=== PATIENT | male | born 1945 | race Caucasian/White ===

== ENCOUNTER 2021-08-28 14:18 | Emergency (ER) | payer MEDICARE ==
[~2021-08-28] VITALS: Ht 180.3 cm; Wt 100.8 kg
[2021-08-28 14:27] VITALS: BP 163/101
[2021-08-28] MEDS ORDERED: LIDOCAINE 1%/EPI 1:100,000 20 ML VIAL. ONE (14:31)
--- NOTE | 2021-08-28 14:32 | PHYS DOC ---
Past History Past Surgical History: No Surgical History Adult General Chief Complaint Chief Complaint: LACERATION/AVULSION [facility] HPI Patient is a 76-year-old male presenting for laceration. Onset was just prior to arrival. Patient was operating a chainsaw when he accidentally cut to foreign tree limbs and suffered a small laceration to his distal left anterior thigh. Patient applied immediate pressure and presented to our ER. He has no obvious symptoms on arrival. He still has full motor or sensory neuro function of left lower extremity. He is not on any blood thinners. He is up-to-date on his tetanus shot Review of Systems Review of Systems Fourteen body systems of review of systems have been reviewed. See HPI for pertinent positives and negative responses, other boyer all other systems are negative, non-pertinent or non-contributory Allergies Allergies Allergies Coded Allergies Type Severity Reaction Last Updated Verified No Known Drug Allergies 08/28/21 No Physical Exam Physical Exam Constitutional: Well developed, well nourished, no acute distress, non-toxic appearance. HENT: Normocephalic, atraumatic, bilateral external ears normal, oropharynx moist, no oral exudates, nose normal. Eyes: PERRLA, EOMI, conjunctiva normal, no discharge. Neck: Normal range of motion, no tenderness, supple, no stridor. Cardiovascular: Heart rate regular, sinus rhythm, no murmurs rubs or gallops Lungs & Thorax: Bilateral breath sounds clear to auscultation Abdomen: Bowel sounds normal, soft, no tenderness, no masses, no pulsatile masses. Nonsurgical abdomen, no peritoneal signs Skin: Warm, dry, no erythema, no rash. Back: No tenderness, no CVA tenderness. Extremities: No tenderness, no cyanosis, no clubbing, ROM intact, no edema. Neurologic: Alert and oriented X 3, grossly normal motor & sensory function, no focal deficits noted. Psychologic: Affect normal, judgement normal, mood normal. Current Patient Data Vital Signs Vital Signs Date Time Temp Pulse Resp B/P (MAP) Pulse Ox O2 Delivery O2 Flow Rate FiO2 08/28/21 14:27 98.4 117 26 163/101 (121) 93 Vital Signs Date Time Temp Pulse Resp B/P (MAP) Pulse Ox O2 Delivery O2 Flow Rate FiO2 08/28/21 14:27 98.4 117 26 163/101 (121) 93 EKG EKG [] Radiology/Procedures Radiology/Procedures [] Heart Score C/O Chest Pain: No Risk Factors: Risk Factors: DM, Current or recent (<one month) smoker, HTN, HLP, family history of CAD, obesity. Risk Scores: Risk Factors: DM, Current or recent (<one month) smoker, HTN, HLP, family history of CAD, obesity. Course & Med Decision Making Course & Med Decision Making ABCs unremarkable HPI and physical exam nonconcerning for any emergent or surgical issues Patient has simple uncomplicated laceration of left anterior thigh that was sutured with a total of x4 simple interrupted nonabsorbable sutures Tdap up-to-date. No indication for antibiotics. Wound care instructions and close outpatient follow-up for suture removal in upcoming 7 to 10 days advised Syd Disclaimer Syd Disclaimer This electronic medical record was generated, in whole or in part, using a voice recognition dictation system. Laceration Repair Lac Repair Laceration #1: 3.5 centimeter linear wound. A time out was undertaken to determine that this was the correct patient and the correct procedure for this patient. The patients laceration was prepped and cleansed in the usual fashion. A total of 4 cc 1% lidocaine with epinephrine administered for anesthesia It was then copiously irrigated with normal saline with high pressure and high volume. The wound was explored in a clear and bloodless field to the base of the wound. There was no evidence of underlying fracture or foreign body. X4 4.0 Prolene sutures were placed in a simple interrupted fashion to close the wound. Excellent care was taken to achieve maximal cosmesis. The patient tolerated this procedure well there were no observed nor reported complications. Departure Departure: Impression: Primary Impression: Laceration of thigh, left Disposition: 01 HOME / SELF CARE / HOMELESS Condition: STABLE Referrals: NON,STAFF (PCP) Patient Instructions: Laceration Care, Adult Additional Instructions: You were seen for a laceration. Keep the area clean and dry. You should return to the ED or your PCP office to get your sutures removed in 7-10 days. You had a total of x4 simple interrupted sutures placed. Return to the ED immediately if you develop any signs of infection like increased pain, redness, fever, or purulent (pus) drainage. Do not take baths, submerge the wound, or use a hot tub until your stitches are removed and the wound is healed. QAMAR PALACIOS DO Aug 28, 2021 14:32
== END 2021-08-28 15:00 | disposition home or self-care (01) ==
LOC: ER 14:18
DX: S71.112A Laceration without foreign body, left thigh, initial encounter (principal); W29.3XXA Contact with powered garden and outdoor hand tools and machinery, initial encounter; Y93.89 Activity, other specified; Y92.89 Other specified places as the place of occurrence of the external cause; Y99.8 Other external cause status
CPT/HCPCS: 12002; 99282

== ENCOUNTER 2021-09-09 12:43 | Emergency (ER) | payer MEDICARE ==
[~2021-09-09] VITALS: Ht 180.3 cm; Wt 100.8 kg
[2021-09-09 12:50] VITALS: BP 169/88
[2021-09-09] MEDS ORDERED: DOXYCYCLINE HYCLATE 100 MG TABLET PO ONE (13:30)
[2021-09-09] MEDS ORDERED: DOXY100C3 PO (13:32)
--- NOTE | 2021-09-09 13:33 | PHYS DOC ---
Past History Past Surgical History: No Surgical History Alcohol Use: None Adult General Chief Complaint Chief Complaint: SUTURE/STAPLE REMOVAL [facility] Patient is a 76-year-old male presenting for left anterior thigh suture removal. Sutures were placed 1 week prior, a total of x4 in nature. Patient reports times 1 suture is well-appearing but the remaining seem embedded under an overlying scab. He has been applying triple antibiotic ointment daily. He is concerned as there is some mild pus and surrounding erythema Review of Systems Review of Systems Fourteen body systems of review of systems have been reviewed. See HPI for pertinent positives and negative responses, other boyer all other systems are negative, non-pertinent or non-contributory Allergies Allergies Allergies Coded Allergies Type Severity Reaction Last Updated Verified No Known Drug Allergies 08/28/21 No Physical Exam Physical Exam Constitutional: Well developed, well nourished, no acute distress, non-toxic appearance. HENT: Normocephalic, atraumatic, bilateral external ears normal, oropharynx moist, no oral exudates, nose normal. Eyes: PERRLA, EOMI, conjunctiva normal, no discharge. Neck: Normal range of motion, no tenderness, supple, no stridor. Cardiovascular: Heart rate regular per monitor Lungs & Thorax: No respiratory distress or accessory muscle use, bilateral chest rise Abdomen: Abdomen soft, non-tender, bowel sounds present in all quadrants, no guarding or rebound, nonacute abdomen. Skin: Warm, dry, 3 cm horizontal laceration superior to left anterior kneecap with x1 simple interrupted suture present with remaining times 3 sutures buried underneath scab and nonpresent. There is slight induration and erythema without any streaking, crepitus or palpable or expressible exudate Back: No tenderness, no CVA tenderness. Extremities: No tenderness, no cyanosis, no clubbing, ROM intact, no edema. Neurologic: Alert and oriented X 3, grossly normal motor & sensory function, no focal deficits noted. Psychologic: Affect normal, judgement normal, mood normal. Current Patient Data Vital Signs Vital Signs Date Time Temp Pulse Resp B/P (MAP) Pulse Ox O2 Delivery O2 Flow Rate FiO2 09/09/21 12:50 98.4 90 18 169/88 (115) 95 EKG EKG [] Radiology/Procedures Radiology/Procedures [] Heart Score C/O Chest Pain: No Risk Factors: Risk Factors: DM, Current or recent (<one month) smoker, HTN, HLP, family history of CAD, obesity. Risk Scores: Risk Factors: DM, Current or recent (<one month) smoker, HTN, HLP, family history of CAD, obesity. Course & Med Decision Making Course & Med Decision Making ABCs unremarkable HPI and physical exam nonconcerning for any emergent or surgical issues Patient had times 1 suture removed, remaining times 3 sutures appear retained and deep to overlying scab that is formed. There is also concern about surrounding erythema and induration, I question etiology being reported multi daily use of triple antibiotic ointment versus developing cellulitis Joint decision made to administer lidocaine with epinephrine at site, scab was removed and remaining times 3 sutures were extracted Joint decision also made to start p.o. antibiotic therapy, patient reported taking doxycycline in the past which I feel is a reasonable choice given its MRSA coverage. Dose was started while in ER Continued wound care instructions advised with avoidance of triple antibiotic cream stressed. Close outpatient follow-up to continue to monitor wound healing recommended. Strict return precautions discussed with good understanding by patient, all questions and concerns addressed prior to ER departure Dragon Disclaimer Dragon Disclaimer This electronic medical record was generated, in whole or in part, using a voice recognition dictation system. Laceration Repair Lac Repair Indication: X3 retained sutures Procedure: The patient was placed in the appropriate position and anesthesia around the left anterior laceration was administered, a total of 2.5 cc 1% lidocaine with epinephrine. The area was then cleansed and irrigated extensively with normal saline solution. Scab was debrided and x3 simple interrupted sutures that were nonabsorbable were cut and removed. Area was then cleansed extensively with normal saline solution. Wound was left open to heal by secondary intention. Total repaired wound length: 3 cm. The patient tolerated the procedure well without any reported nor observed complications. Departure Departure: Impression: Primary Impression: Visit for suture removal Additional Impressions: Retained suture Cellulitis Disposition: HOME / SELF CARE / HOMELESS Condition: STABLE Referrals: NON,STAFF (PCP) Additional Instructions: You were seen for suture removal. 3 out of your 4 sutures were retained requiring extraction. There was concern about early development of a superficial skin infection called cellulitis but this could be due to excessive triple antibiotic use. Regardless, joint decision was made to start antibiotic therapy using doxycycline. Please take this antibiotic as scheduled to completion well. You should nehal the area of redness when you get home. If your redness spreads past the marked area at 24 hours you should have it evaluated again. You do not have an abscess right now but you could develop one. If so you will need to have it. You should return to the ED immediately if you develop worsening pain, fever, swelling, redness, drainage, any sign of abscess, or any other new or concerning symptoms. Scripts Doxycycline Hyclate (DOXYCYCLINE HYCLATE) 100 Mg Capsule 1 CAP PO BID for CELLULITIS, #13 CAP Prov: QAMAR PALACIOS DO 09/09/21 Problem Qualifiers QAMAR PALACIOS DO Sep 09, 2021 13:33
[2021-09-09] MEDS ORDERED: MUPIROCIN 2% TOPICAL OINTMENT 22GM TUBE. TP ONE (13:45)
== END 2021-09-09 13:45 | disposition home or self-care (01) ==
LOC: ER 12:43
DX: L03.116 Cellulitis of left lower limb (principal); Z48.02 Encounter for removal of sutures
CPT/HCPCS: 99283-25

== ENCOUNTER → 2021-11-30 | Outpatient (CLI) | payer MEDICARE ==
[~2021-11-30] MED LIST: DOXY100C3 PO
--- NOTE | 2021-11-30 10:38 | RAD ---
EXAM: Renal artery Doppler sonogram. HISTORY: Resistant hypertension. TECHNIQUE: Naik scale and color Doppler sonographic imaging of the kidneys and renal arteries with sp ectral analysis was performed. COMPARISON: None. FINDINGS: The kidneys are normal in size. There is left renal cortical lobulation, likely development al or due to scarring. There is no suspicious renal lesion or hydronephrosis. There are normal bilate ral renal artery peak systolic velocities and renal artery to aorta velocity ratios. The inferior marcia a cava and renal veins are patent. The bladder is not assessed. IMPRESSION: 1. No Doppler evidence of hemodynamically significant stenosis involving the renal arteries. 2. No suspicious renal lesion. Electronically signed by: Hannah Aaron MD (11/30/2021 10:36 AM) [id number]
--- NOTE | 2021-12-01 10:46 | CARD ---
MR#: [id number] Date of Study: 11/30/2021 Ordering Physician: STEPHANIE SUAREZ, Referring Physician: STEPHANIE SUAREZ, Tech: Radha Juarez, [facility] APPROVED REPORT EXAM: Two-dimensional and M-mode echocardiogram with Doppler and color Doppler. Other Information Quality : FairHR: 68bpm INDICATION Hypertension/HCVD RISK FACTORS Hyperlipidemia 2D DIMENSIONS Left Atrium(2D)4.5 (1.6-4.0cm)IVSd1.2 (0.7-1.1cm) Aortic Root(2D)3.4 (2.0-3.7cm)LVDd5.8 (3.9-5.9cm) LVOT Diameter2.0 (1.8-2.4cm)PWd1.2 (0.7-1.1cm) LVDs3.4 (2.5-4.0cm)FS (%) 41.4 % SV118.4 ml Aortic Valve AoV Peak Chriss.133.3cm/sAoV VTI28.2cm AO Peak GR.7.1mmHgLVOT Peak Chriss.98.3cm/s LVOT VTI 21.32cmAO Mean GR.3mmHg VALERIANO (VMAX)2.40xk7MKP (VTI)2.39cm2 Mitral Valve MV E Julgjwjb89.5cm/sMV E Peak Gr.2mmHg MV DECEL [id number] A Moxjawwi19.2cm/s MV E Mean Gr.1mmHgE/A Ratio0.7 Pulmonary Valve PV Peak Pilffgvr81.8cm/sPV Peak Grad.4mmHg Tricuspid Valve TR P. Cjfsjflt745bt/sRAP [id number] TR Peak Gr.33moCqJIES81iyLc LEFT VENTRICLE The left ventricle is normal size. There is mild concentric left ventricular hypertrophy. The left ve ntricular systolic function is normal and the ejection fraction is within normal range. LV ejection f raction is 55 to 60%. There is normal LV segmental wall motion. Transmitral Doppler flow pattern is G rade I-abnormal relaxation pattern. RIGHT VENTRICLE The right ventricle is mildly dilated. There is normal right ventricular wall thickness. The right ve ntricular systolic function is normal. ATRIA The left atrium size is normal. The right atrium size is normal. The interatrial septum is intact wit h no evidence for an atrial septal defect or patent foramen ovale as noted on 2-D or Doppler imaging. AORTIC VALVE The aortic valve is thickened but opens well. Doppler and Color Flow revealed no significant aortic r egurgitation. There is no significant aortic valvular stenosis. Calculated aortic valve area is 2.4 c m2 with maximum pressure gradient of 7 mmHg and mean pressure gradient of 4 mmHg. MITRAL VALVE The mitral valve is normal in structure and function. There is no evidence of mitral valve prolapse. There is no mitral valve stenosis. Doppler and Color Flow revealed no mitral valve regurgitation note d. TRICUSPID VALVE The tricuspid valve is normal in structure and function. Doppler and Color Flow revealed trace tricus pid regurgitation with an estimated PAP of 19 mmHg. There is no tricuspid valve stenosis. PULMONIC VALVE The pulmonic valve is not well visualized. Doppler and Color Flow revealed no pulmonic valvular regur gitation. GREAT VESSELS The aortic root is normal in size. The IVC is normal in size and collapses >50% with inspiration. PERICARDIAL EFFUSION There is no evidence of significant pericardial effusion. Critical Notification Critical Value: No <Conclusion> The left ventricle is normal size. The left ventricular systolic function is normal and the ejection fraction is within normal range. LV ejection fraction is 55 to 60%. There is normal LV segmental wall motion. There is mild concentric left ventricular hypertrophy. Doppler and Color Flow revealed no significant aortic regurgitation. There is no significant aortic valvular stenosis. Doppler and Color Flow revealed no mitral valve regurgitation noted. Doppler and Color Flow revealed trace tricuspid regurgitation with an estimated PAP of 19 mmHg. Signed by : Alli Mclaughlin MD Electronically Approved : 12/01/2021 10:45:12
== END ==
LOC: US 09:47
PROVIDERS: ATTEND Internal Medicine Cardiovascular Disease
DX: I35.1 Nonrheumatic aortic (valve) insufficiency (principal); I51.7 Cardiomegaly; I10 Essential (primary) hypertension
CPT/HCPCS: 93306; 93975